=== PATIENT | male | born 1965 | race African-American/Black ===

== ENCOUNTER 2025-01-08 05:52 | Emergency (ER) | payer BC ==
[~2025-01-08] VITALS: Ht 180.3 cm; Wt 76.0 kg
[2025-01-08 06:15] VITALS: O2SAT 99
[2025-01-08] MEDS: KETOROLAC 30MG/ML VIAL IM ONE (07:40)
[2025-01-08] MEDS ORDERED: IBUP-2029 MT (07:53)
[2025-01-08] MEDS ORDERED: CYCL10TA21 MT (07:53)
[2025-01-08 07:59] VITALS: BP 146/93; PULSE 63; RESP 18; TEMP 36.6; O2SAT 100
== END 2025-01-08 08:09 | disposition home or self-care (01) ==
LOC: ER 05:52
DX: M54.40 Lumbago with sciatica, unspecified side (principal); E78.00 Pure hypercholesterolemia, unspecified
CPT/HCPCS: 96372; 99283; J1885; Z7610